=== PATIENT | male | born 1955 | race Caucasian/White ===

== ENCOUNTER 2020-02-18 12:14 | Inpatient (IN) ==
[2020-02-18] MEDS ORDERED: NS 0.9% 1000 ml BAG 1,000 ML IV ONE (12:43)
[2020-02-18 12:53] LABS: ABS Basophils 0.1 10^3/ul (0-0.2); ABS Eosinophils 0.6 10^3/ul (0-0.6); ABS Lymphocytes 0.8 10^3/ul (1.0-4.8); ABS Monocytes 1.1 10^3/ul (0-0.8); ABS Neutrophils 12.3 10^3/ul (1.5-7.7); Eosinophil % 3.8 %; Hematocrit 27 % (42-52); Lymphocyte % 5.7 %; Mean Corpuscular HGB Conc 33 g/dL (31-36); Mean Corpuscular Hemoglobin 29 pg (27-31); Mean Corpuscular Volume 87 fL (80-94); Mean Platelet Volume 7.8 fL (7.4-10.4); Platelet Count 209 10^3/uL (150-450); Red Blood Count 3.12 10^6 /uL (4.18-5.48); Red Cell Distribution Width 17 % (10-15); White Blood Count 14.8 10^3/uL (3.5-10.8)
[2020-02-18 13:06] LABS: Activated Partial Thrombo Time 56.5 seconds (26.0-38.0)
[2020-02-18 13:09] LABS: INR 7.21 (0.82-1.09)
[2020-02-18 13:10] LABS: Albumin 3.7 g/dL (3.2-5.2); Albumin/Globulin Ratio 0.9 (1-3); BUN/Creatinine Ratio 17.5 (8-20); C Reactive Protein 278.2 mg/L (<8.01); Calcium 9.5 mg/dL (8.6-10.3); EGFR African American 42.1 (>60); EGFR Non-African American 34.8 (>60); Globulin 4.2 g/dL (2-4); Potassium 4.7 mmol/L (3.5-5.0); Total Bilirubin 0.5 mg/dL (0.2-1.0); Total Protein 7.9 g/dL (6.4-8.9)
[2020-02-18 13:11] LABS: Troponin I 0.02 ng/mL (<0.03)
[2020-02-18] MEDS ORDERED: Oxymetazoline 0.05% NASAL SPR 15 ML BTL BOTH NARES ONE (14:50)
[2020-02-18] MEDS ORDERED: Warfarin per PHARMACY **NOTE FOLLOW UP SCH (16:00)
[2020-02-18] MEDS ORDERED: Dextrose 50% Syringe 50 ml 25 GM/50 ML SYRINGE IV PUSH PRN (16:17)
[2020-02-18 16:38] LABS: Troponin I 0.01 ng/mL (<0.03)
[2020-02-18] MEDS: cefTRIAXone 1 gm/50 mL NS BAG 1 GM/50 ML BAG IVPB SCH (17:36)
[2020-02-18] MEDS: metroNIDAZOLE IV 500 MG/100ML 500 MG/100 ML BAG IVPB SCH (17:36)
[2020-02-18] MEDS: DULoxetine DR 60 mg CAP PO SCH (17:48)
[2020-02-18] MEDS: NS 0.9% 1000 ml BAG 1,000 ML IV SCH (18:28)
[2020-02-18] MEDS ORDERED: Magnesium Hydroxide LIQ 30 ML UDC PO PRN (19:24)
[2020-02-18] MEDS ORDERED: Senna TAB 8.6 mg TAB PO PRN (19:24)
[2020-02-19] MEDS: metroNIDAZOLE IV 500 MG/100ML 500 MG/100 ML BAG IVPB SCH ×2 (00:26→08:49)
[2020-02-19] MEDS: Latanoprost 0.005% 2.5 ml BTL BOTH EYES SCH ×2 (00:28→20:37)
[2020-02-19] MEDS: NS 0.9% 1000 ml BAG 1,000 ML IV SCH (08:49)
[2020-02-19] MEDS: Polyethylene Glycol 3350 17 GM PACKET PO SCH (08:51)
[2020-02-19 08:54] LABS: Urine Appearance Cloudy; Urine Bilirubin Negative (Negative); Urine Blood 1+ (Negative); Urine Color Amber; Urine Glucose Negative (Negative); Urine Ketones Negative (Negative); Urine Nitrite Negative (Negative); Urine Protein 2+(100 mg/dL) (Negative); Urine Specific Gravity 1.014 (1.010-1.030); Urine Urobilinogen Negative (Negative)
[2020-02-19 09:04] LABS: ABS Basophils 0.1 10^3/ul (0-0.2); ABS Eosinophils 0.4 10^3/ul (0-0.6); ABS Lymphocytes 0.6 10^3/ul (1.0-4.8); ABS Monocytes 0.8 10^3/ul (0-0.8); ABS Neutrophils 10.8 10^3/ul (1.5-7.7); Eosinophil % 3.2 %; Hematocrit 25 % (42-52); Hemoglobin 8.3 g/dL (14.0-18.0); Lymphocyte % 4.5 %; Mean Corpuscular HGB Conc 33 g/dL (31-36); Mean Corpuscular Hemoglobin 29 pg (27-31); Mean Corpuscular Volume 87 fL (80-94); Mean Platelet Volume 7.4 fL (7.4-10.4); Platelet Count 173 10^3/uL (150-450); Red Blood Count 2.87 10^6 /uL (4.18-5.48); Red Cell Distribution Width 17 % (10-15); White Blood Count 12.6 10^3/uL (3.5-10.8)
[2020-02-19 09:06] LABS: Urine Bacteria Absent (Absent); Urine Red Blood Cell 1+(3-5/hpf) (Absent); Urine Squamous Epithelial Cell Present (Absent); Urine White Blood Cell 3+(>20/hpf) (Absent)
[2020-02-19] MEDS: DULoxetine DR 60 mg CAP PO SCH ×2 (09:14→20:38)
[2020-02-19 09:23] LABS: Albumin 3.3 g/dL (3.2-5.2); Albumin/Globulin Ratio 0.9 (1-3); BUN/Creatinine Ratio 18.1 (8-20); C Reactive Protein 221.53 mg/L (<8.01); Calcium 8.8 mg/dL (8.6-10.3); EGFR African American 38.4 (>60); EGFR Non-African American 31.8 (>60); Globulin 3.7 g/dL (2-4); Potassium 4.6 mmol/L (3.5-5.0); Total Bilirubin 0.4 mg/dL (0.2-1.0)
[2020-02-19 09:49] LABS: INR >10.00 (0.82-1.09)
[2020-02-19] MEDS ORDERED: Phytonadione Oral Solution 5 MG/25 ML UDC PO ONE (10:30)
[2020-02-19] MEDS: Magnesium Hydroxide LIQ 30 ML UDC PO PRN (14:57)
[2020-02-19] MEDS ORDERED: Azithromycin 500 mg/250 ml NS 500 MG/250 ML BAG IVPB ONE (15:16)
[2020-02-19] MEDS: cefTRIAXone 1 gm/50 mL NS BAG 1 GM/50 ML BAG IVPB SCH (16:24)
[2020-02-19] MEDS ORDERED: Warfarin - No Order Today **NOTE FOLLOW UP SCH (17:00)
[2020-02-20] MEDS: NS 0.9% 1000 ml BAG 1,000 ML IV SCH ×2 (00:34→20:19)
[2020-02-20] MEDS: Magnesium Hydroxide LIQ 30 ML UDC PO PRN (03:57)
[2020-02-20 09:42] LABS: ABS Basophils 0.1 10^3/ul (0-0.2); ABS Eosinophils 0.4 10^3/ul (0-0.6); ABS Lymphocytes 0.6 10^3/ul (1.0-4.8); ABS Monocytes 0.8 10^3/ul (0-0.8); ABS Neutrophils 11.2 10^3/ul (1.5-7.7); Eosinophil % 3.2 %; Hematocrit 27 % (42-52); Hemoglobin 9.2 g/dL (14.0-18.0); Lymphocyte % 4.9 %; Mean Corpuscular HGB Conc 34 g/dL (31-36); Mean Corpuscular Hemoglobin 29 pg (27-31); Mean Corpuscular Volume 86 fL (80-94); Mean Platelet Volume 7.6 fL (7.4-10.4); Platelet Count 207 10^3/uL (150-450); Red Blood Count 3.16 10^6 /uL (4.18-5.48); Red Cell Distribution Width 17 % (10-15)
[2020-02-20] MEDS: Polyethylene Glycol 3350 17 GM PACKET PO SCH (09:44)
[2020-02-20 10:00] LABS: Calcium 9.2 mg/dL (8.6-10.3); EGFR African American 39.3 (>60); EGFR Non-African American 32.5 (>60); Potassium 4.3 mmol/L (3.5-5.0)
[2020-02-20 10:37] LABS: INR 6.23 (0.82-1.09)
[2020-02-20 14:28] LABS: C Reactive Protein 186.14 mg/L (<8.01)
[2020-02-20] MEDS ORDERED: Warfarin - No Order Today **NOTE FOLLOW UP SCH (17:00)
[2020-02-20] MEDS: cefTRIAXone 1 gm/50 mL NS BAG 1 GM/50 ML BAG IVPB SCH (18:31)
[2020-02-20 21:00] LABS: Urine Appearance Cloudy; Urine Bilirubin Negative (Negative); Urine Blood 2+ (Negative); Urine Color Straw; Urine Glucose Negative (Negative); Urine Ketones Negative (Negative); Urine Nitrite Negative (Negative); Urine Protein 1+(30 mg/dL) (Negative); Urine Specific Gravity 1.003 (1.010-1.030); Urine Urobilinogen Negative (Negative)
[2020-02-20 21:03] LABS: Urine Bacteria 1+ (Absent); Urine Red Blood Cell 1+(3-5/hpf) (Absent); Urine White Blood Cell 2+(11-20/hpf) (Absent)
[2020-02-20] MEDS: DULoxetine DR 60 mg CAP PO SCH (21:14)
[2020-02-20] MEDS: Latanoprost 0.005% 2.5 ml BTL BOTH EYES SCH (21:14)
[2020-02-21 00:01] LABS: BUN/Creatinine Ratio 16.8 (8-20); Calcium 9.2 mg/dL (8.6-10.3); EGFR African American 41.4 (>60); EGFR Non-African American 34.2 (>60); Magnesium 2.1 mg/dL (1.9-2.7); Potassium 3.9 mmol/L (3.5-5.0)
[2020-02-21] MEDS: Polyethylene Glycol 3350 17 GM PACKET PO SCH (08:15)
[2020-02-21 08:25] LABS: ABS Basophils 0.1 10^3/ul (0-0.2); ABS Eosinophils 0.5 10^3/ul (0-0.6); ABS Lymphocytes 0.9 10^3/ul (1.0-4.8); ABS Monocytes 0.7 10^3/ul (0-0.8); ABS Neutrophils 8.9 10^3/ul (1.5-7.7); Eosinophil % 4.2 %; Hematocrit 26 % (42-52); Hemoglobin 8.8 g/dL (14.0-18.0); Lymphocyte % 7.7 %; Mean Corpuscular HGB Conc 34 g/dL (31-36); Mean Corpuscular Hemoglobin 29 pg (27-31); Mean Corpuscular Volume 86 fL (80-94); Mean Platelet Volume 7.3 fL (7.4-10.4); Platelet Count 214 10^3/uL (150-450); Red Blood Count 3.02 10^6 /uL (4.18-5.48); Red Cell Distribution Width 17 % (10-15)
[2020-02-21 08:35] LABS: BUN/Creatinine Ratio 16.3 (8-20); Calcium 9.5 mg/dL (8.6-10.3); EGFR African American 48.4 (>60); Potassium 3.8 mmol/L (3.5-5.0)
[2020-02-21 09:17] LABS: INR 5.94 (0.82-1.09)
[2020-02-21] MEDS ORDERED: Cefepime ADVAN 1 GM in NS 0.9% 50 ML 50 ML IVPB SCH (10:00)
[2020-02-21] MEDS: Cefepime 1 GM in Dextrose 1 GM/50 ML BAG IV SCH ×2 (10:43→17:48)
[2020-02-21] MEDS: NS 0.9% 1000 ml BAG 1,000 ML IV SCH (10:44)
[2020-02-21] MEDS ORDERED: Warfarin - No Order Today **NOTE FOLLOW UP ONE (11:00)
[2020-02-21] MEDS: Dextran 70/Hypromellose Tears Eye Drops 15 ml BTL (for Artificials Tears) BOTH EYES PRN (12:37)
[2020-02-21] MEDS ORDERED: Phytonadione Oral Solution 5 MG/25 ML UDC PO ONE (15:23)
[2020-02-21] MEDS: DULoxetine DR 60 mg CAP PO SCH (20:04)
[2020-02-21] MEDS: Latanoprost 0.005% 2.5 ml BTL BOTH EYES SCH (20:31)
[2020-02-22] MEDS: Cefepime 1 GM in Dextrose 1 GM/50 ML BAG IV SCH ×3 (02:22→17:55)
[2020-02-22 06:08] LABS: ABS Basophils 0.1 10^3/ul (0-0.2); ABS Eosinophils 0.6 10^3/ul (0-0.6); ABS Lymphocytes 1.2 10^3/ul (1.0-4.8); ABS Monocytes 0.8 10^3/ul (0-0.8); ABS Neutrophils 9.4 10^3/ul (1.5-7.7); Eosinophil % 5.1 %; Hematocrit 28 % (42-52); Hemoglobin 9.3 g/dL (14.0-18.0); Lymphocyte % 9.5 %; Mean Corpuscular HGB Conc 33 g/dL (31-36); Mean Corpuscular Hemoglobin 28 pg (27-31); Mean Corpuscular Volume 85 fL (80-94); Mean Platelet Volume 7.5 fL (7.4-10.4); Platelet Count 225 10^3/uL (150-450); Red Blood Count 3.28 10^6 /uL (4.18-5.48); Red Cell Distribution Width 17 % (10-15); White Blood Count 12.2 10^3/uL (3.5-10.8)
[2020-02-22 06:14] LABS: INR 3.33 (0.82-1.09)
[2020-02-22 06:23] LABS: BUN/Creatinine Ratio 12.5 (8-20); Calcium 9.3 mg/dL (8.6-10.3); EGFR African American 63.4 (>60); EGFR Non-African American 52.4 (>60)
[2020-02-22 06:40] LABS: Potassium 3.2 mmol/L (3.5-5.0)
[2020-02-22] MEDS ORDERED: Potassium Chlor 20 meq TAB.ER PO ONE (08:43)
[2020-02-22 09:02] LABS: Magnesium 1.5 mg/dL (1.9-2.7)
[2020-02-22] MEDS: Polyethylene Glycol 3350 17 GM PACKET PO SCH ×2 (09:18→10:45)
[2020-02-22] MEDS ORDERED: Magnesium Sulfate IV 3 GM in NS 0.9% 100 ml BAG 100 ML IVPB ONE (14:32)
[2020-02-22] MEDS ORDERED: Warfarin - No Order Today **NOTE FOLLOW UP ONE (17:00)
[2020-02-22] MEDS: DULoxetine DR 60 mg CAP PO SCH (20:46)
[2020-02-22] MEDS: Dextran 70/Hypromellose Tears Eye Drops 15 ml BTL (for Artificials Tears) BOTH EYES PRN (20:53)
[2020-02-22] MEDS: Latanoprost 0.005% 2.5 ml BTL BOTH EYES SCH (21:06)
[2020-02-23] MEDS: Cefepime 1 GM in Dextrose 1 GM/50 ML BAG IV SCH ×2 (02:03→10:59)
[2020-02-23] MEDS ORDERED: Buffered Lidocaine 1% SYRIN 1 ml INTRADERM ONE (06:00)
[2020-02-23] MEDS ORDERED: Lactated Ringers 1000 ml BAG 1,000 ML IV SCH (06:00)
[2020-02-23 07:02] LABS: ABS Basophils 0.1 10^3/ul (0-0.2); ABS Eosinophils 0.9 10^3/ul (0-0.6); ABS Lymphocytes 1.2 10^3/ul (1.0-4.8); ABS Monocytes 0.8 10^3/ul (0-0.8); ABS Neutrophils 8.8 10^3/ul (1.5-7.7); Eosinophil % 7.9 %; Hematocrit 26 % (42-52); Hemoglobin 9.2 g/dL (14.0-18.0); Mean Corpuscular HGB Conc 35 g/dL (31-36); Mean Corpuscular Hemoglobin 30 pg (27-31); Mean Corpuscular Volume 85 fL (80-94); Mean Platelet Volume 7.2 fL (7.4-10.4); Nucleated Red Blood Cells % 0.1; Platelet Count 205 10^3/uL (150-450); Red Blood Count 3.09 10^6 /uL (4.18-5.48); Red Cell Distribution Width 17 % (10-15); White Blood Count 11.8 10^3/uL (3.5-10.8)
[2020-02-23 07:16] LABS: Calcium 8.7 mg/dL (8.6-10.3); Magnesium 1.7 mg/dL (1.9-2.7); Potassium 3.2 mmol/L (3.5-5.0)
[2020-02-23] MEDS ORDERED: Magnesium Sulfate IV 3 GM in NS 0.9% 100 ml BAG 100 ML IVPB ONE (09:00)
[2020-02-23] MEDS: Polyethylene Glycol 3350 17 GM PACKET PO SCH (09:13)
[2020-02-23] MEDS: KCL 20 MEQ/100 ML IVPREMIX 20 MEQ/100 ML BAG IV SCH ×2 (11:56→17:05)
[2020-02-23 12:54] LABS: INR 1.88 (0.82-1.09)
[2020-02-23] MEDS ORDERED: fentaNYL 100 mcg/2 ml 50 MCG/ML VIAL ONE (14:54)
[2020-02-23] MEDS ORDERED: KCL 20 MEQ/100 ML IVPREMIX 20 MEQ/100 ML BAG ONE (16:59)
[2020-02-23] MEDS: DULoxetine DR 60 mg CAP PO SCH (20:28)
[2020-02-23] MEDS: Latanoprost 0.005% 2.5 ml BTL BOTH EYES SCH (21:48)
[2020-02-23] MEDS: Amoxicillin/Clavul 875/125 TAB (Augmentin 875 tab) PO SCH ×2 (21:49→23:09)
[2020-02-23] MEDS: Amoxicillin/Clavulan ORALSYR 80 MG/ML (400 MG/5 ML) PO SCH (22:19)
[2020-02-24 05:32] LABS: ABS Basophils 0.1 10^3/ul (0-0.2); ABS Eosinophils 0.8 10^3/ul (0-0.6); ABS Lymphocytes 1.5 10^3/ul (1.0-4.8); ABS Monocytes 0.8 10^3/ul (0-0.8); ABS Neutrophils 9.7 10^3/ul (1.5-7.7); Eosinophil % 6.2 %; Hematocrit 26 % (42-52); Hemoglobin 8.7 g/dL (14.0-18.0); Lymphocyte % 11.8 %; Mean Corpuscular HGB Conc 33 g/dL (31-36); Mean Corpuscular Hemoglobin 28 pg (27-31); Mean Corpuscular Volume 85 fL (80-94); Mean Platelet Volume 6.8 fL (7.4-10.4); Platelet Count 203 10^3/uL (150-450); Red Blood Count 3.08 10^6 /uL (4.18-5.48); Red Cell Distribution Width 17 % (10-15)
[2020-02-24 05:38] LABS: INR 1.75 (0.82-1.09)
[2020-02-24 05:49] LABS: BUN/Creatinine Ratio 9.1 (8-20); Calcium 8.9 mg/dL (8.6-10.3); EGFR African American 91.5 (>60); EGFR Non-African American 75.6 (>60); Magnesium 1.8 mg/dL (1.9-2.7); Potassium 3.2 mmol/L (3.5-5.0)
[2020-02-24] MEDS ORDERED: Magnesium Sulfate IV 1GM/100ML 1 GM/100 ML BAG IV ONE (09:00)
[2020-02-24] MEDS ORDERED: Potassium Chlor 20 meq TAB.ER PO SCH (09:00)
[2020-02-24] MEDS ORDERED: Potassium Chlor 20 meq TAB.ER PO ONE (09:00)
[2020-02-24] MEDS: Amoxicillin/Clavulan ORALSYR 80 MG/ML (400 MG/5 ML) PO SCH (09:24)
[2020-02-24] MEDS: Polyethylene Glycol 3350 17 GM PACKET PO SCH (10:10)
[2020-02-24 11:27] VITALS: BP 134/63
== END 2020-02-24 13:15 | disposition home or self-care (01) | DRG 178 ==
LOC: ED 12:14 → MED 15:43
PROVIDERS: ADMIT Internal Medicine; ATTEND Internal Medicine